=== PATIENT | female | born 1970 | race Caucasian/White ===

== ENCOUNTER 2021-05-24 12:21 | Inpatient (IN) | payer OTHER ==
[~2021-05-24] VITALS: Ht 162.6 cm; Wt 106.1 kg
== END 2021-05-25 18:45 | DRG 812 ==
LOC: ER 12:21 → SEC-K 20:50 → MEDJ 05-25 16:53
PROVIDERS: ADMIT Internal Medicine; ATTEND Internal Medicine
PROC: 30233N1 Transfusion of Nonautologous Red Blood Cells into Peripheral Vein, Percutaneous Approach (ICD-10-PCS; principal; 2021-05-24)
DX: D64.9 Anemia, unspecified (principal); N93.8 Other specified abnormal uterine and vaginal bleeding; Z20.822 Contact with and (suspected) exposure to COVID-19

== ENCOUNTER 2021-06-28 10:30 | Inpatient (IN) | payer OTHER ==
[~2021-06-28] VITALS: Ht 157.5 cm; Wt 102.1 kg
[2021-07-05] MEDS ORDERED: NEURONTIN600 MG PO (07:03)
[2021-07-05] MEDS ORDERED: IBUPROFEN800 MG PO (07:03)
[2021-07-05] MEDS ORDERED: LEVSIN/SL0.125 MG SL (07:04)
== END 2021-07-05 08:58 | disposition home or self-care (01) | DRG 743 ==
LOC: OB/GYN 07-03 05:37 → O/R 07-03 05:37 → SURH 07-03 10:30 → OB/GYN 07-03 10:35
PROVIDERS: ADMIT Obstetrics & Gynecology Gynecology; ATTEND Obstetrics & Gynecology Gynecology
PROC: 0UB70ZZ Excision of Bilateral Fallopian Tubes, Open Approach (ICD-10-PCS; 2021-07-03)
PROC: 0UT90ZZ Resection of Uterus, Open Approach (ICD-10-PCS; principal; 2021-07-03 07:00)
DX: D25.1 Intramural leiomyoma of uterus (principal); D25.2 Subserosal leiomyoma of uterus; N72 Inflammatory disease of cervix uteri; N92.1 Excessive and frequent menstruation with irregular cycle; D64.9 Anemia, unspecified